=== PATIENT | female | born 1970 | race Caucasian/White ===

== ENCOUNTER 2016-11-20 12:14 | Emergency (ER) | payer MEDICAID ==
[2016-11-20 12:25] VITALS: BMI 29.9
[2016-11-20] MEDS ORDERED: Amoxicillin-Clav 875-125 mg Tab PO STA (13:25)
[2016-11-20] MEDS ORDERED: Amoxicillin-Clav 875-125 mg Tab PO ONE (13:29)
[2016-11-20 14:07] VITALS: BP 115/74; PULSE 87; RESP 18; TEMP 98.2; O2SAT 98
--- NOTE | 2016-11-20 14:55 | C.PDOC ---
History Of Present Illness 46 yr old female presents to the ER with complaints of right hand, 2nd digit pain since yesterday. Patient states she tripped and put her hand out and jammed her finger. Patient states she noticed some puss draining from the wound this morning. Patient denies fall to the ground, pain medication, arm pain, shoulder pain, neck pain, weakness or numbness. Time Seen by Provider: 11/20/16 12:30 Chief Complaint (Nursing): Finger,Hand,&Wrist History Per: Patient History/Exam Limitations: no limitations Onset/Duration Of Symptoms: Days (1) Current Symptoms Are (Timing): Still Present Past Medical History Reviewed: Historical Data, Nursing Documentation, Vital Signs Vital Signs: Last Vital Signs Temp 98.2 F 11/20/16 13:50 Pulse 87 11/20/16 13:50 Resp 18 11/20/16 13:50 BP 115/74 11/20/16 13:50 Pulse Ox 98 11/20/16 14:58 - Medical History PMH: Anxiety, Migraine, Seizures Surgical History: Hernia Repair, - [facility] PHYSICAL THERAPY NEC (11/05/13) Family History: States: No Known Family Hx - Social History Hx Tobacco Use: Yes Hx Alcohol Use: No Hx Substance Use: No - Immunization History Hx Tetanus Toxoid Vaccination: No Hx Influenza Vaccination: No Hx Pneumococcal Vaccination: No Review Of Systems Except As Marked, All Systems Reviewed And Found Negative. Musculoskeletal: Positive for: Other ((+) Right hand, 2nd digit pain). Negative for: Neck Pain, Shoulder Pain, Arm Pain Neurological: Negative for: Weakness, Numbness Physical Exam - Physical Exam Appears: Non-toxic, No Acute Distress Skin: Warm, Dry, No Rash Head: Atraumatic, Normacephalic Oral Mucosa: Moist Chest: Symmetrical, No Tenderness Cardiovascular: Rhythm Regular, No Murmur Respiratory: Normal Breath Sounds, No Rales, No Rhonchi, No Stridor, No Wheezing Extremity: Capillary Refill (<2 sec), Other (Right Hand, 2nd Digit - Nail easyily raises. Nail bed intact. Minimal pus noticed under the pain. Artificial nail in place.) Pulses: Left Radial: Normal, Right Radial: Normal Neurological/Psych: Oriented x3, Normal Speech, Normal Motor, Normal Sensation ED Course And Treatment O2 Sat by Pulse Oximetry: 98 (RA) Pulse Ox Interpretation: Normal Medical Decision Making Medical Decision Making: PLAN: * X-Ray - Right Hand, 2nd Digit * Augmentin PO * Motrin PO Disposition - Disposition Disposition: HOME/ ROUTINE Disposition Time: 13:20 Condition: GOOD Additional Instructions: Thank you for letting us take care of you today. Your provider was Dr. Silva. You were treated for finger pain/abscess. The emergency medical care you received today was directed at your acute symptoms. If you were prescribed any medication, please fill it and take as directed. It may take several days for your symptoms to resolve. Return to the Emergency Department if your symptoms worsen, do not improve, or if you have any other problems. Please contact your doctor or call one of the physicians/clinics you have been referred to that are listed on the Patient Visit Information form that is included in your discharge packet. Bring any paperwork you were given at discharge with you along with any medications you are taking to your follow up visit. Our treatment cannot replace ongoing medical care by a primary care provider (PCP) outside of the emergency department. Thank you for allowing the [facility] team to be part of your care today. Take the antibiotics until completed. Follow up with your doctor in 2 days for a wound check and further management. Prescriptions: Amoxicillin/Clavulanate [Augmentin 875 MG-125 MG] 1 tab PO Q12 #14 tab Ibuprofen [Motrin] 600 mg PO Q6 PRN #20 tab PRN Reason: Pain, Moderate (4-7) Instructions: Abscess (ED) Forms: [employer] (Kinyarwanda) - Clinical Impression Clinical Impression: Abscess of finger - Scribe Statement The provider has reviewed the documentation as recorded by the Kizzy Loja Provider Attestation: All medical record entries made by the Kizzy were at my direction and personally dictated by me. I have reviewed the chart and agree that the record accurately reflects my personal performance of the history, physical exam, medical decision making, and the department course for this patient. I have also personally directed, reviewed, and agree with the discharge instructions and disposition.
--- NOTE | 2016-11-20 16:47 | RAD ---
PROCEDURE: Right Index finger radiographs. HISTORY: r/o fx COMPARISON: None. TECHNIQUE: AP radiograph of the right hand, as well as spot oblique and lateral images of index finger were obtained. FINDINGS: RIGHT INDEX FINGER: Normal right index finger, without fracture or focal lesion. Remainder of the right hand (as seen on the AP view) grossly intact. JOINTS: Normal. SOFT TISSUES: Normal. OTHER FINDINGS: None. IMPRESSION: No acute findings related to/accounting for the clinical presentation. Please note: No preliminary report/ innterpretation of this examination provided by emergency department personnel.
== END 2016-11-20 14:00 | disposition home or self-care (01) ==
LOC: C.ER 12:14
DX: L02.511 Cutaneous abscess of right hand (principal)